=== PATIENT | female | born 2000 | race Two or more races ===

== ENCOUNTER 2023-09-17 07:40 | Observation (INO) | payer MEDICAID ==
[~2023-09-17] VITALS: Ht 154.9 cm; Wt 65.3 kg
[2023-09-17] MEDS ORDERED: PREN1TAB71 OR (07:58)
[2023-09-17] MEDS ORDERED: NITR-87 PO (08:41)
== END 2023-09-17 08:52 | disposition home or self-care (01) ==
LOC: LDRP 07:40
PROVIDERS: ADMIT Obstetrics & Gynecology; ATTEND Obstetrics & Gynecology
DX: O62.9 Abnormality of forces of labor, unspecified (principal); O23.43 Unspecified infection of urinary tract in pregnancy, third trimester; O26.893 Other specified pregnancy related conditions, third trimester; N39.0 Urinary tract infection, site not specified; M54.9 Dorsalgia, unspecified; Z3A.38 38 weeks gestation of pregnancy
CPT/HCPCS: 59025; 81002; G0378

== ENCOUNTER 2023-10-01 13:10 | Observation (INO) | payer MEDICAID ==
[~2023-10-01 13:10] MED LIST: NITR-87 PO; PREN1TAB71 OR
== END 2023-10-01 16:30 | disposition home or self-care (01) ==
LOC: LDRP 13:10
PROVIDERS: ADMIT Obstetrics & Gynecology; ATTEND Obstetrics & Gynecology
DX: O48.0 Post-term pregnancy (principal); O62.9 Abnormality of forces of labor, unspecified; Z3A.40 40 weeks gestation of pregnancy
CPT/HCPCS: 59025; 76818; 81002; G0378

== ENCOUNTER 2023-10-02 09:20 | Observation (INO) | payer MEDICAID | END 2023-10-02 11:19 | disposition home or self-care (01) | LOC: LDRP 09:20 → UNDOADMOB 09:20 → LDRP 09:41 → UNDODISOB 11:19 | PROVIDERS: ADMIT Obstetrics & Gynecology; ATTEND Obstetrics & Gynecology | DX: O48.0 Post-term pregnancy (principal); O47.9 False labor, unspecified; O62.9 Abnormality of forces of labor, unspecified; O26.893 Other specified pregnancy related conditions, third trimester; R10.9 Unspecified abdominal pain; Z3A.40 40 weeks gestation of pregnancy | CPT/HCPCS: 59025; 76818; 81002; 94760; G0378 ==

== ENCOUNTER 2023-10-02 12:53 | Inpatient (IN) | payer MEDICAID ==
[~2023-10-02] VITALS: Ht 154.9 cm; Wt 65.3 kg
[2023-10-02] MEDS ORDERED: WITCH HAZEL-GLYCERIN PAD TOP PRN (15:15)
[2023-10-02] MEDS ORDERED: LACT. RINGERS/OXYTOCIN 20UNITS 500 ML IV ONE ×2 (15:15→15:45)
[2023-10-02] MEDS ORDERED: LIDOCAINE 2%HCL (LOCAL ANESTH.) INJ 20ML MDV IJ PRN (15:15)
[2023-10-02] MEDS ORDERED: PROMETHAZINE HCL 25 MG/ML 1ML IV PRN (15:15)
[2023-10-02] MEDS ORDERED: DERMOPLAST 60ML BOTTLE TOP PRN (15:15)
[2023-10-02] MEDS ORDERED: PHISODERM TOP SOLN 240ML BTL TOP PRN (15:15)
[2023-10-02] MEDS: LACTATED RINGER'S 1,000 ML IV SCH ×2 (16:11→17:57)
[2023-10-02 16:13] LABS: Basophils # (auto) 0 10 ^3/uL (0-0.2); Eosinophils # (auto) 0 10 ^3/uL (0-0.8); Eosinophils % (auto) 0.2 % (0.0-7.0); Hemoglobin 10.9 g/dL (12.2-16.2); Monocytes % (auto) 6.2 % (0.0-12.0)
[2023-10-02 16:15] LABS: Basophils % (auto) 0.3 % (0.0-2.0); Hematocrit 33.6 % (36.0-46.0); Lymphocytes # (auto) 1.4 10 ^3/uL (0.4-5.4); Lymphocytes % (auto) 8.9 % (10.0-50.0); Mean Corpuscular Hemoglobin 26.5 pg (28.0-32.0); Mean Corpuscular Hgb Conc. 32.4 g/dL (32.0-36.0); Mean Corpuscular Volume 81.9 fL (80.0-100.0); Neutrophils # (auto) 13.1 10 ^3/uL (1.6-8.6); Neutrophils % (auto) 84.4 % (37.0-80.0); Red Cell Distribution Width 15.2 % (11.8-14.3); White Blood Cell 15.5 10^3/uL (4.4-10.8)
[2023-10-02] MEDS ORDERED: ROPIVACAINE HCL 200 ML EPI SCH (16:15)
[2023-10-02] MEDS ORDERED: ePHEDrine SULFATE 50 MG/ML AMP IV ONE (16:15)
[2023-10-02] MEDS ORDERED: LACTATED RINGER'S 1,000 ML IV ONE (16:15)
[2023-10-02 16:33] LABS: INR 0.96 (0.9-1.15); Partial Thromboplastin Time 27.1 SEC (24.5-34.5); Prothrombin Time 10.1 sec (9.3-11.8)
[2023-10-02 16:38] LABS: Albumin 3.6 g/dL (3.2-4.8); Alkaline Phosphatase 224 U/L (46-116); Anion Gap 9 (5-15); Aspartate Aminotransferase 13 U/L (13-40); BUN/Creatinine Ratio 9.4 (10.0-20.0); Blood Urea Nitrogen 6 mg/dL (9-23); Calcium 8.7 mg/dL (8.7-10.4); Carbon Dioxide 21 mmol/L (20-30); Chloride 108 mmol/L (98-107); Glucose 77 mg/dL (74-106); Sodium 138 mmol/L (136-145)
[2023-10-02 16:39] LABS: Bilirubin, Total 0.3 mg/dL (0.2-1.0); Total Protein 6.1 g/dL (5.7-8.2)
[2023-10-02 16:46] LABS: Alanine Aminotransferase < 9 U/L (7-40)
[2023-10-02] MEDS ORDERED: fentaNYL CITRATE 100 MCG/2 ML VL ONE (17:18)
[2023-10-02] MEDS ORDERED: fentaNYL CITRATE 100 MCG/2 ML VL IV ONE (17:30)
[2023-10-02] MEDS: ROPIVACAINE HCL 200 ML EPI SCH (18:12)
[2023-10-03] MEDS: LACTATED RINGER'S 1,000 ML IV SCH (01:15)
[2023-10-03] MEDS: ROPIVACAINE HCL 200 ML EPI SCH (02:37)
[2023-10-03] MEDS ORDERED: LACT. RINGERS/OXYTOCIN 20UNITS 1,000 ML IV SCH (02:45)
[2023-10-03] MEDS ORDERED: TERBUTALINE SULFATE 1 MG/ML 1ML VIAL SC PRN (02:45)
[2023-10-03] MEDS ORDERED: ACETAMINOPHEN 325 MG TAB PO PRN (07:00)
[2023-10-03] MEDS ORDERED: ONDANSETRON ODT 4 MG TAB PO PRN (07:00)
[2023-10-03] MEDS ORDERED: IBUPROFEN 600 MG TAB PO PRN (07:00)
[2023-10-03 10:50] VITALS: BP 114/77; PULSE 113; RESP 18; TEMP 98.4; O2SAT 96
[2023-10-03 14:37] VITALS: BP 107/70; PULSE 111; RESP 18; TEMP 98.8; O2SAT 96
[2023-10-03 19:01] VITALS: BP 106/67; PULSE 82; RESP 18; TEMP 98.6; O2SAT 100
[2023-10-03] MEDS ORDERED: DOCUSATE SOD 100 MG CAP PO SCH (22:00)
[2023-10-03 23:00] VITALS: BP 121/75; PULSE 81; RESP 16; TEMP 98.5; O2SAT 96
[2023-10-04 03:00] VITALS: BP 106/67; PULSE 80; RESP 16; TEMP 98.6; O2SAT 100
[2023-10-04 06:35] VITALS: BP 114/60; PULSE 83; RESP 16; TEMP 98.2; O2SAT 83
[2023-10-04 07:06] LABS: RPR Non Reactive (Non Reactive)
[2023-10-04 07:32] LABS: Basophils # (auto) 0.1 10 ^3/uL (0-0.2); Basophils % (auto) 0.5 % (0.0-2.0); Eosinophils # (auto) 0.1 10 ^3/uL (0-0.8); Eosinophils % (auto) 0.9 % (0.0-7.0); Hematocrit 27.7 % (36.0-46.0); Hemoglobin 9.1 g/dL (12.2-16.2); Lymphocytes # (auto) 2.3 10 ^3/uL (0.4-5.4); Lymphocytes % (auto) 13.7 % (10.0-50.0); Mean Corpuscular Hemoglobin 27.3 pg (28.0-32.0); Mean Corpuscular Hgb Conc. 32.9 g/dL (32.0-36.0); Monocytes # (auto) 1.4 10 ^3/uL (0-1.3); Monocytes % (auto) 8.3 % (0.0-12.0); Neutrophils # (auto) 12.6 10 ^3/uL (1.6-8.6); Neutrophils % (auto) 76.6 % (37.0-80.0); Red Blood Cells 3.34 10^6/uL (4.0-5.20); Red Cell Distribution Width 15.1 % (11.8-14.3); White Blood Cell 16.5 10^3/uL (4.4-10.8)
[2023-10-04] MEDS ORDERED: IBU600T PO ×2 (07:55→08:07)
[2023-10-04 11:00] VITALS: BP 120/58; PULSE 80; RESP 16; TEMP 98.2; O2SAT 83
[2023-10-05 19:07] LABS: Treponema pallidum Ab (FTA-Ab) Non Reactive (Non Reactive)
== END 2023-10-04 13:55 | disposition home or self-care (01) | DRG 560 ==
LOC: LDRP 12:53 → UNDOADMOB 12:53 → LDRP 13:01 → INTOOBSV 14:40 → OBSVTOIN 14:40 → LDRP 18:47
PROVIDERS: ADMIT Obstetrics & Gynecology; ATTEND Obstetrics & Gynecology
PROC: 3E0R3BZ Introduction of Anesthetic Agent into Spinal Canal, Percutaneous Approach (ICD-10-PCS; 2023-10-02)
PROC: 00HU33Z Insertion of Infusion Device into Spinal Canal, Percutaneous Approach (ICD-10-PCS; 2023-10-02)
PROC: 10E0XZZ Delivery of Products of Conception, External Approach (ICD-10-PCS; principal; 2023-10-03)
DX: O48.0 Post-term pregnancy (principal); Z37.0 Single live birth; Z3A.40 40 weeks gestation of pregnancy
CPT/HCPCS: 36415; 59025; 59409; 62282; 80053; 81002; 85025; 85610; 85730; 86592; 86850; 86900; 86901; 94760; 94762; 96360; 96361; 96365; 96366; G0378; J2590